=== PATIENT | male | born 1995 | race Caucasian/White ===

== ENCOUNTER 2017-05-03 20:47 | Emergency (ER) | payer SELFPAY ==
--- NOTE | 2017-05-03 21:26 | Emergency Department Record ---
History of Present Illness - General Chief Complaint: Chest Pain Stated Complaint: CHEST PAIN Time Seen by Provider: 05/03/17 20:58 Source: Patient Mode of Arrival: Ambulatory Limitations: No limitations - History of Present Illness Initial Comments: The patient is here due to a 9 hour hx of retrosternal chest aching. The onset was at rest and he describes it as a nonradiating pain that is not associated with SOB, CHERRI, or sweating but is worse with deep breaths. The patient denies any AP with it and has had no cough, colds, or congestion. He did take some Tums and peptobismal with no relief. He has no hx of similar issues and no cardiac risk factors except for a hx of smoking. Additionally he has no hx of CP with exertion or GATES. MD Complaint: Chest pain Onset/Timin -: Hour(s) Onset: During rest Pain Location: Substernal, Right chest Severity: Moderate Severity scale (1-10): 6 Quality: Dull Consistency: Constant Worsens With: Inspiration, Supine Treatment Prior to Arrival Comment:: tums - Related Data Previous Rx's Medication Instructions Recorded Naproxen [Naprosyn] 500 mg PO BID #14 tablet. 05/04/17 Allergies Allergy/AdvReac Type Severity Reaction Status Date / Time No Known Drug Allergies Allergy Verified 05/03/17 20:52 Travel Screening - Travel/Exposure Within Last 30 Days Have you traveled within the last 30 days?: No Review of Systems Constitutional: Denies: Chills, Fever Eyes: Denies: Eye discharge ENT: Denies: Congestion Respiratory: Denies: Cough, Dyspnea Past Medical History - SOCIAL HISTORY Smoking Status: Current every day smoker Alcohol Use: Occasional Drug Use: None - RESPIRATORY Hx Respiratory Disorders: No - CARDIOVASCULAR Hx Cardio Disorders: No - NEURO Hx Neuro Disorders: No - GI Hx GI Disorders: No - Hx Genitourinary Disorders: No - ENDOCRINE Hx Endocrine Disorders: No - MUSCULOSKELETAL Hx Musculoskeletal Disorders: No - PSYCH Hx Psych Problems: No - HEMATOLOGY/ONCOLOGY Hx Hematology/Oncology Disorders: No Family Medical History Any Significant Family History?: Yes Hx Heart Disease: Grandparents Physical Exam - General General Appearance: Alert, Oriented x3, Cooperative, No acute distress - Head Head exam: Atraumatic, Normocephalic, Normal inspection - Eye Eye exam: Normal appearance, PERRL - ENT Throat exam: Normal inspection. negative: Tonsillar erythema, Tonsillar exudate - Neck Neck exam: Normal inspection, Full ROM. negative: Tenderness - Respiratory Respiratory exam: Normal lung sounds bilaterally. negative: Respiratory distress - Cardiovascular Cardiovascular Exam: Regular rate, Normal rhythm, Normal heart sounds - GI/Abdominal GI/Abdominal exam: Soft, Normal bowel sounds. negative: Rebound, Rigid, Tenderness - Extremities Extremities exam: Normal inspection, Full ROM, Normal capillary refill. negative: Tenderness - Neurological Neurological exam: Alert. negative: Motor sensory deficit Course Vital Signs 05/03/17 20:52 Temperature 98.5 F Pulse Rate [ 98 H Pulse Ox Probe] Respiratory 20 Rate Blood Pressure 145/103 [Left Arm] Pulse Ox 98 - Reevaluation(s) Reevaluation #1: The patient is doing better at this time. Presently he is texting on the phone. He states the pain is improved and only present with deep breaths. I did explain to him that all of his tests are normal and that we will try some carafate and toradol next to resolve the residual discomfort. 05/03/17 22:16 Reevaluation #2: 2nd EKG: Neg for any significant ST changes. Normal EKG. 05/03/17 22:55 Reevaluation #3: The patient is doing very well at this time. He is pain free and I did discuss the neg test results with him. We will place him on Naprosyn and have him F/U with his family doctor next week. 05/04/17 00:21 Medical Decision Making - Data Complexity MDM Data: Labs Ordered and/or Reviewed, X-Ray Ordered and/or Reviewed, EKG Ordered and/or Reviewed - Lab Data Result diagrams: 05/03/17 21:25 05/03/17 21:38 - EKG Data -: EKG Interpreted by Me EKG: No Acute Changes, Normal EKG - Radiology Data Radiology results: Report reviewed (CXR: Neg per rad. Chest and Abd CT: Neg.) Disposition Disposition: Discharge Clinical Impression: Atypical chest pain Disposition: Home, Self-Care Condition: (2) Stable Instructions: Chest Pain (ED) Additional Instructions: Please take Naprosyn for pain and please see your family doctor for recheck early next week. Return to the ER for any pain, fever, trouble breathing or vomiting. Prescriptions: Naproxen [Naprosyn] 500 mg PO BID #14 tablet.dr Forms: Patient Portal Access Time of Disposition: 00:23 Quality - Quality Measures Quality Measures: N/A - Blood Pressure Screening View Details: Yes Does Patient Have Any of the Following: No Blood Pressure Classification: Normal BP Reading Systolic Measurement: 112 Diastolic Measurement: 75 Screening for High Blood Pressure: < Normal BP, F/U Not Required > [G8783]
[2017-05-03] MEDS ORDERED: MAGNESIUM HYDROXIDE/AL HYDROX 30 ML, LIDOCAINE VISC 2% 200 MG PO ONE ×2 (21:29)
[2017-05-03 21:36] LABS: BASO % 0.2 % (0-6); HEMATOCRIT 47.1 % (42.0-52.0); HEMOGLOBIN 16.7 gm/dl (14.0-18.0); LYMPH % 13.8 % (16-45); MEAN CELL VOLUME 84.9 fl (81-97); MEAN CORPUSCULAR HEMOGLOBIN 30.1 pg (27-33); MEAN CORPUSCULAR HGB CONC 35.5 g/dl (32-36); PLATELET COUNT 232 K/uL (130-400); RED BLOOD COUNT 5.55 M/uL (4.40-5.70); RED CELL DISTRIBUTION WIDTH 12.1 % (11.5-14.5)
[2017-05-03 21:50] LABS: BLOOD UREA NITROGEN 11 mg/dL (6-20); CREATININE 0.9 mg/dL (0.7-1.2); EST GLOMERULAR FILTRATION RATE > 60 mL/min
[2017-05-03 21:51] LABS: TOTAL PROTEIN 7.7 g/dL (6.6-8.7)
[2017-05-03 21:53] LABS: GLUCOSE,RANDOM 91 mg/dL (74-109)
[2017-05-03 21:55] LABS: ALT/SGPT 28 U/L (<41)
[2017-05-03 21:56] LABS: ALB/GLOB RATIO 1.5 (1.1-1.8); ALBUMIN 4.6 g/dL (4.0-5.0); ALKALINE PHOSPHATASE 52 U/L (40-129); AST/SGOT 17 U/L (10.0-50.0); CREATINE PHOSPHOKINASE 72 U/L (39-308)
[2017-05-03 21:58] LABS: CKMB < 1.0 ng/mL (<6.73)
[2017-05-03 22:01] LABS: PARTIAL THROMBOPLASTIN TIME 27.8 SECONDS (24.5-39.1); PROTHROMBIN TIME (PATIENT) 10.9 SECONDS (9.5-12.1)
[2017-05-03] MEDS ORDERED: SUCRALFATE 1 G/10 ML UD PO ONE (22:14)
[2017-05-03] MEDS ORDERED: KETOROLAC 30 MG/ML VIAL IVP ONE (22:16)
[2017-05-03] MEDS ORDERED: 0.9 % SODIUM CHLORIDE 1,000 ML BAG IV ONE (23:00)
--- NOTE | 2017-05-05 21:30 | RADIOLOGY REPORT ---
EXAM: CHEST 2 VIEWS COMPARISON: None. HISTORY: SUBSTERNAL CHEST PAIN TECHNIQUE: Chest, two view. FINDINGS: The heart is not enlarged. Lungs and pleural spaces are clear. IMPRESSION: NO ACUTE CARDIOPULMONARY ABNORMALITY. JOB NUMBER: [id number] MTDD
--- NOTE | 2017-05-05 21:54 | CT ANGIOGRAM REPORT ---
EXAM: CT ANGIOGRAM CHEST/ABDOMEN CTA HISTORY: PATIENT HAS PLEURITIC CHEST PAIN. TECHNIQUE: Serial axial CTA scan of the chest and abdomen was performed at 2.5 mm intervals from the thoracic inlet to the iliac crest following the intravenous administration of 100 mL of Omnipaque-350. Comparison chest x-ray dated 05/03/2017 is provided. Three-dimensional reconstructions are provided. FINDINGS: Thoracic inlet is unremarkable. Lung windows demonstrate no CT evidence of any focal infiltrate, pleural effusion, or pneumothorax. Chest wall demonstrates bilateral gynecomastia. Clinical correlation to the etiology is recommended. The heart size and contour is within normal limits. The contour, caliber, and flow within the thoracic aorta is within normal limits. There is no CT evidence of aneurysmal dilatation or aortic dissection. The visualized great vessels are unremarkable. There is no CT evidence of mediastinal, hilar, or axillary lymphadenopathy. Bone windows of the chest demonstrate no CT evidence of a fracture or dislocation in the visualized osseous structures of the chest. The liver, spleen, bilateral adrenal glands, pancreas, gallbladder are unremarkable. The bilateral kidneys demonstrate no CT evidence of hydronephrosis or hydroureter. No obvious renal calculi are noted. The contour, caliber, and flow within the visualized abdominal aorta and visualized common iliac arteries are unremarkable. There is no CT evidence of retroperitoneal lymphadenopathy. The visualized bowel gas pattern is nonspecific and nonobstructive. There is no CT evidence of free intraperitoneal air or free intraperitoneal fluid. The visualized abdominal wall is unremarkable. Bone windows of the abdomen demonstrate no CT evidence of a fracture or dislocation of the visualized osseous structures of the abdomen. IMPRESSION: 1. NO CT EVIDENCE OF AN ACUTE INTRATHORACIC PROCESS. 2. NO CT EVIDENCE OF AN ACUTE INTRAABDOMINAL PROCESS. 3. THORACIC AORTA AND VISUALIZED ABDOMINAL AORTA DEMONSTRATE NORMAL CONTOUR, CALIBER, AND FLOW. 4. FINDINGS COMPATIBLE WITH GYNECOMASTIA. CLINICAL CORRELATION TO THE ETIOLOGY IS RECOMMENDED. JOB NUMBER: [id number] [facility]
== END 2017-05-04 00:29 | disposition home or self-care (01) ==
LOC: ER 20:47
DX: R07.89 Other chest pain (principal); F17.210 Nicotine dependence, cigarettes, uncomplicated
CPT/HCPCS: 99285 ×2; 96374; 82550; 85025; 85651; 85730; 85610; 86140; 82553; 80053; 84484; 85379; 71046; 71275; 74175; 93005; 93010; Q9967; J1885; J7030